=== PATIENT | male | born 1990 | race Caucasian/White ===

== ENCOUNTER → 2017-01-19 | Outpatient (CLI) | payer BC ==
--- NOTE | 2017-01-19 15:44 | KCIC ---
PROCEDURE CT paranasal sinuses without contrast. HISTORY Nasal polyp. Chronic sinus problems, congestion, drainage. TECHNIQUE Helical CT imaging of the paranasal sinuses is performed without IV contrast. PQRS: One or more the following individualized dose reduction techniques were utilized for the study: 1. Automated exposure control. 2. Adjustment of the mA and/or kV according to patient size. 3. Use of iterative reconstruction technique. COMPARISON None. FINDINGS There is minimal mucosal thickening inferiorly in the bilateral maxillary sinuses. There is a tiny mucous retention cyst or polyp in the left sphenoid sinus anteriorly. Sphenoid sinuses otherwise clear. No significant mucosal thickening of the ethmoid sinuses. The left frontal sinus is clear. Non pneumatization of right frontal sinus. No air-fluid level. The mastoid air cells are aerated. The bony nasal septum is midline. The left infundibular canal is partially opacified. The remainder of the left ostiomeatal complex is patent. The right infundibular canal is opacified. The right middle and inferior meatus is partially opacified. The temporomandibular joints are intact. Visualized brain without obvious midline shift or mass effect. The globes and orbits are intact. IMPRESSION 1. Paranasal sinuses are mostly clear. 2. The ostiomeatal complexes are partially opacified bilaterally. Electronically signed by: Armen Milian MD (January 19, 2017 15:43:37)
== END | disposition home or self-care (01) ==
LOC: KCIC CT 15:10
PROVIDERS: ATTEND Otolaryngology
DX: J33.9 Nasal polyp, unspecified (principal); R09.81 Nasal congestion
CPT/HCPCS: 70486